=== PATIENT | female | born 1950 | race Hispanic/Latino ===

== ENCOUNTER → 2017-12-22 | Outpatient (CLI) | payer MEDICARE ==
[~2017-12-22] MED LIST: IOPAMIDOL 370 MG/ML 200 ML INFUS..BTL INJ ONE; SODIUM CHLORIDE 0.9% 50ML 50 ML ONE
[2017-12-22 08:58] LABS: BLOOD UREA NITROGEN 20 mg/dL (7-26); BUN/CREATININE RATIO 22 (6-25); CREATININE, SERUM 0.92 mg/dL (0.57-1.11); EST GLOMERULAR FILTRATION RATE > 60 ML/MIN (60-)
--- NOTE | 2017-12-22 10:44 | Diagnostic Imaging Report ---
PROCEDURE: CT ABDOMEN \T\ PELVIS W/WO CONTRAST TECHNIQUE: The abdomen and pelvis were scanned utilizing a multidetector helical scanner from the diaphragm to the lesser trochanter before and after the IV administration of 100 cc Isovue 300. Renal mass protocol was performed. Coronal and sagittal multiplanar reformations were obtained. COMPARISON: None. INDICATIONS: RENAL MASS FINDINGS: LOWER THORAX: 6 mm nodule in the left lower lobe as seen on series 3 image 15.. HEPATOBILIARY: No focal hepatic lesion or intrahepatic biliary ductal dilatation. The gallbladder is unremarkable. SPLEEN: No splenomegaly. PANCREAS: No focal masses or ductal dilatation. ADRENALS: No adrenal nodules. KIDNEYS/URETERS: Status post left nephrectomy. There is a 1.2 cm round, nodular structure immediately adjacent to the left renal vein stump and ligated the left renal artery seen on series 4 image 85. Otherwise no abnormal soft tissue in the surgical bed. There is a subcentimeter hypoattenuating lesion in the interpolar right kidney, too small to further characterize but likely representing small cysts. Excretory phase images show no filling defects within the right upper collecting system, ureter, or urinary bladder. PELVIC ORGANS/BLADDER: Urinary bladder is unremarkable. Multiple uterine fibroids, some of which are calcified. No adnexal mass. PERITONEUM / RETROPERITONEUM: No ascites or pneumoperitoneum. LYMPH NODES: Suspected left periaortic lymph node as above. No additional pelvic sidewall or retroperitoneal lymphadenopathy. VESSELS: The abdominal aorta, great vessels, and iliac arterial systems are notable for atherosclerotic calcification without aneurysmal dilatation. Portal vein, splenic vein, and central superior mesenteric vein are patent. GI TRACT: The large bowel shows no evidence of distention or wall thickening. The appendix is normal. No small bowel dilatation to suggest obstruction. BONES AND SOFT TISSUES: No focal soft tissue abnormalities with the exception of multiple calcified soft tissue injection granulomata. No osseous destructive lesions. Transitional lumbosacral anatomy with left-sided pseudoarthrosis between L5 and S1. Calcified right lateral basal pleural plaque. Multilevel degenerative disc changes and facet arthropathy of the lumbar spine. IMPRESSION: Status post left nephrectomy with a suspected 1.5 cm left periaortic lymph node concerning for residual disease. Comparison with preoperative PET-CT (performed at an outside facility) would be of benefit. Left lower lobe pulmonary nodule measures 6 mm and is indeterminate. Again, comparison with prior cross-sectional imaging would be of benefit. Particular attention to this region should be paid on subsequent followup imaging examinations. Dictated by: Trip Lind M.D. on 12/22/2017 at 10:45 Electronically approved by: Trip Lind M.D. on 12/22/2017 at 10:45
== END ==
LOC: CT 08:10
PROVIDERS: ATTEND Urology
DX: C64.9 Malignant neoplasm of unspecified kidney, except renal pelvis (principal); N28.1 Cyst of kidney, acquired
CPT/HCPCS: 36415; 74178; 82565; 84520; Q9967